=== PATIENT | female | born 1985 | race Caucasian/White ===

== ENCOUNTER 2018-01-21 22:47 | Emergency (ER) | payer OTHER ==
[~2018-01-21] VITALS: Ht 170.2 cm; Wt 72.6 kg
[2018-01-21 22:54] VITALS: Ht 170.2 cm; Wt 72.6 kg
[2018-01-22 01:21] LABS: AMPHETAMINE QUAL UR NONE DETECTED (See below)
[2018-01-22 01:27] VITALS: BP 103/67
== END 2018-01-22 01:27 | disposition home or self-care (01) ==
LOC: ED 22:47
PROVIDERS: Emergency Medicine
DX: F41.9 Anxiety disorder, unspecified (principal); F32.9 Major depressive disorder, single episode, unspecified; Z88.8 Allergy status to other drugs, medicaments and biological substances
CPT/HCPCS: Q0092